=== PATIENT | male | born 1980 | race Caucasian/White ===

== ENCOUNTER 2017-04-12 15:32 | Emergency (ER) | payer OTHER ==
[~2017-04-12] VITALS: Ht 175.3 cm; Wt 72.6 kg
[2017-04-12 15:34] VITALS: BP 124/67
--- NOTE | 2017-04-12 16:14 | Emergency Room Report ---
History of Present Illness General Chief Complaint: Medical Clearance Source: Patient Present Illness HPI 37-year-old male presents emergency department for medical clearance for incarceration. Patient denies medical symptoms at this time patient states history of occasionally becoming Flush when he takes medications.denies being rx 'd meds regularly. Patient denies shortness of breath, chest pain, bleeding, open wounds, fevers or chills. Denies CP, Palpitations, LOC, AMS, dizziness, Changes in Vision, Sensation, paresthesias, or a sudden severe headache. Allergies: Coded Allergies: No Known Allergies (Unverified , 04/10/15) Patient History Past Medical History: see triage record Past Surgical History: none Pertinent Family History: none Immunizations: UTD Reviewed Nursing Documentation: PMH: Agreed, PSxH: Agreed Nursing Documentation-PMH Past Medical History: No History, Except For Review of Systems All Other Systems: negative except mentioned in HPI Physical Exam Vital Signs Date Time Temp Pulse Resp B/P Pulse Ox O2 Delivery O2 Flow Rate FiO2 04/12/17 15:28 98.1 96 16 124/67 98 Room Air Sp02 EP Interpretation: reviewed, normal General Appearance: no apparent distress, alert, GCS 15, non-toxic Head: normocephalic, atraumatic Eyes: bilateral eye PERRL, bilateral eye normal inspection ENT: hearing grossly normal, normal pharynx, no angioedema, normal voice Neck: full range of motion, supple/symm/no masses Respiratory: chest non-tender, lungs clear, normal breath sounds, no respiratory distress, no wheezing, speaking full sentences Cardiovascular #1: regular rate, rhythm, no edema, normal capillary refill Cardiovascular #2: 2+ radial (R), 2+ radial (L) Gastrointestinal: normal bowel sounds, non tender, soft, no guarding, no rebound Musculoskeletal: back normal, gait/station normal, normal range of motion, non- tender, no calf tenderness Neurologic: alert, oriented x3, responsive, motor strength/tone normal, sensory intact, speech normal Psychiatric: judgement/insight normal, memory normal, mood/affect normal, no suicidal/homicidal ideation Skin: normal color, no rash, warm/dry, well hydrated Lymphatic: no adenopathy Medical Decision Making PA Attestation Dr. Guzman is my supervising Physician whom patient management has been discussed with. Diagnostic Impression: Primary Impression: Medical clearance for incarceration ER Course 37 -year-old male presents emergency department for medical clearance for incarceration. Patient denies medical symptoms at this time patient states history of occasionally becoming Flush when he takes medications.denies being rx 'd meds regularly. Patient denies shortness of breath, chest pain, bleeding, open wounds, fevers or chills. Denies CP, Palpitations, LOC, AMS, dizziness, Changes in Vision, Sensation, paresthesias, or a sudden severe headache. Ddx considered but are not limited to Head Trauma, MT, ACS, SI/HI, URI, SAH, Fractures, Dislocations, Tazer barbs, Abrasions. Vital signs: are WNL, pt. is afebrile H&PE are most consistent with: normal limited physical examination. ORDERS: none required at this time, the diagnosis is clinical ED INTERVENTIONS: None required at this time. DISCHARGE: At this time pt. is stable for d/c to law enforcement. Will provide printed patient care instructions, and any necessary prescriptions. Care plan and follow up instructions have been discussed with the patient prior to discharge. Last Vital Signs Date Time Temp Pulse Resp B/P Pulse Ox O2 Delivery O2 Flow Rate FiO2 04/12/17 15:34 98.1 16 124/67 98 Room Air 04/12/17 15:28 96 Disposition: D/C TO LAW ENFORCEMENT IN [place] Condition: Stable Referrals: NOT CHOSEN IPA/MD,REFERRING (PCP) Departure Forms: [facility] Clearance Patient Instructions: Medical Screening Exam Additional Instructions: Take any previously prescribed medications as directed. Follow up with a Primary Care Provider in 3-5 days, even if your symptoms have resolved. Return sooner to ED if new symptoms occur, or current symptoms become worse. - Please note that this Emergency Department Report was dictated using [employer] edging technology software, occasionally this can lead to erroneous entry secondary to interpretation by the dictation equipment. Jaqui Nevarez Apr 12, 2017 16:14
[2017-04-12 16:33] VITALS: BP 124/67
== END 2017-04-12 16:34 ==
LOC: EDBD 15:32 → EMR 15:53
DX: R23.2 Flushing (principal)
CPT/HCPCS: 99283